=== PATIENT | male | born 2000 | race Caucasian/White ===

== ENCOUNTER 2024-01-07 02:21 | Emergency (ER) | payer OTHER, MEDICAID, SELFPAY ==
[2024-01-07 02:22] VITALS: BP 128/76; PULSE 76; RESP 14; TEMP 36.2; O2SAT 98; BMI 23.2
--- NOTE | 2024-01-07 02:42 | EDS_ITS ---
HPI History of Present Illness Chief Complaint: Allergic Reaction Informant: patient Onset/Context/Timing Onset: Hours Context: Gradual Onset Timing: Continuous Current Severity: Mild Maximum Severity: Mild Narrative Narrative: Healthy 24-year-old male history of eczema. Was at work insert him the rash and itching started in his right forearm also abdomen. They think it may be secondary to colon but they are unsure. He denies any lip or tongue swelling. He denies any wheezing or trouble breathing. No prior history. Prior similar symptoms: No Recent Illness/Hospitalization: No PFSH PFSH Medical History no medical history Home Medications ?Medication ?Instructions ?Recorded ?Last Taken ?Type prednisone 20 mg tablet 40 mg (2 x 20 mg) PO DAILY 7 days 01/07/24 Unknown Rx #14 tabs Allergy/AdvReac Type Severity Reaction Status Date / Time amoxicillin (From Augmentin) Allergy Hives Verified 01/07/24 02:24 clavulanic acid (From Allergy Hives Verified 01/07/24 02:24 Augmentin) Social History Smoking Status: Current every day smoker tobacco type: cigarettes ROS ROS ED ROS Narrative Denies recent illness. Constitutional Constitutional ED: Denies chills or fever(s) Eyes Eyes: Denies blurry vision ENT ENT ED: Denies ear pain Cardiovascular Cardiovascular: Denies chest pain Respiratory/Chest Respiratory/Chest: Denies cough or dyspnea Gastrointestinal Gastrointestinal: Denies abdominal pain Genitourinary Genitourinary ED: Denies dysuria or hematuria Musculoskeletal Musculoskeletal: Denies arthralgias Integumentary Reports rash; Denies abscess or Abrasions Neurologic Neurologic: Denies headache(s) Psychiatric Psychiatric: Denies anxiety Endocrine Endocrinology: Denies cold intolerance Hematologic/Lymphatic Hematologic/Lymphatic: Reports none Allergic/Immunologic Allergic/Immunologic ED: Denies mouth swelling, tongue swelling or urticaria EXAM Physical Exam Narrative Exam Narrative: Well-appearing 23-year-old male. Vital signs stable afebrile. H EENT exam unremarkable. No lip or tongue swelling. No trouble breathing or swallowing. Neck nontender. Lungs clear to auscultation bilaterally. Heart regular rhythm rate about 75 no murmur. Chest wall ribs nontender. Abdomen soft nontender. There is a small faint red rash on his abdomen that blanches consistent allergic reaction. Moving all 4 extremities. He has a rash on his right palmar forearm. Again consistent with allergic reaction. No petechiae or purpura. No sloughing of skin. Normal collection advisor strength bilaterally. Normal dorsi plantarflexion. Back nontender no rash. He is awake and alert. No focal motor deficits. Const Vital Signs: 01/07/24 02:22 Temperature 97.1 F L Temperature Source Temporal Pulse Rate 76 Respiratory Rate 14 Blood Pressure 128/76 H Blood Pressure Mean 93 Pulse Ox 98 Oxygen Delivery Method Room Air Positive well nourished and well developed; Negative for obese, cachectic, contractures or unkempt General Appearance ED: well developed and NAD; Negative for unkempt, cachectic, contractures, cyanotic, diaphoretic or pallor Nutritional Appearance: Negative for cachectic or obese HEENT Reports moist mucous membranes Negative for trauma or tenderness Eyes PERRL and EOMs intact bilaterally General Eye ED: Negative for pale conjunctiva or scleral icterus Neck no lymphadenopathy, supple and no JVD General: Negative for tenderness Lymph Lymphatic: Negative for other Chest Wall inspection of chest normal and palpation of chest normal Chest: Negative for other Resp normal respiratory effort and clear to auscultation bilaterally Effort and Inspection: Negative for retractions Auscultation: Negative for rales, rhonchi, wheezes or diminished lung sounds Cardio regular rate, regular rhythm, S1 normal heart sound, S2 normal heart sound and no murmurs Palpation: Negative for palpable S3 or palpable S4 Rate: Negative for bradycardia or tachycardic Rhythm: Negative for abnormal rhythm GI normal to inspection, nondistended, normoactive bowel sounds, non-tender, non-distended and no masses Inspection: Negative for abdominal distention Palpation: soft; Negative for tender, guarding or rebound tenderness present Back/Spine no CVA tenderness General Back: Negative for CVA tenderness Cervical Spine: Negative for cervical spine tenderness Thoracic Spine / Upper Back: Negative for thoracic spinal tenderness Lumbar Spine / Lower Back: Negative for lumbar spinal tenderness Extremity normal to inspection Extremity Narrative: Rash right forearm. Blanches. General Extremety ED: Negative for edema or tenderness General Extremity: Negative for edema Neuro oriented x3 and CN's II-XII intact bilaterally Sensorium / Orientation: alert; Negative for orientation impaired, lethargic or stuporous Motor Exam: strength 5/5 throughout Psych mental status grossly normal Appearance: Negative for unkempt Attitude: No agitated Mood & Affect: Negative for depressed, anxious or tearful Skin No no rashes or lesions noted, no wounds and skin turgor normal General Skin Exam: elasticity normal; Negative for jaundice or pallor Lesions: No lesion noted Rashes: rashes noted Trauma: Negative for abrasion Wounds: Negative for wounds noted MDM MDM MDM Narrative Medical decision making narrative: 23-year-old male with rash that itches consistent allergic reaction. We given oral prednisone. Discharged home with prednisone prescription and use Benadryl. They are making this Worker's Comp. History & Record Review Discussion w/independent historian: Patient Discharge Plan Triage Chief Complaint: Allergic Reaction ED Provider: Michael Wilson Dx/Rx/DC Orders Clinical Impression: Allergic reaction, Encounter related to worker's compensation claim Instructions: ED General Allergic Reactions Prescriptions: New prednisone 20 mg tablet 40 mg PO DAILY 7 Days Qty: 14 0RF Primary Care Provider: NOT,DEFINED Referrals: Kelechi Heart MD [Med Staff - Communications Billing Analyst] - As Needed NOT,DEFINED [Primary Care Provider] - Activity Restrictions/Additional Instructions: Prednisone daily for 40 mg a day for a week. If the rash completely goes away you can stop it early. You can also use Benadryl for the itching. Follow-up if not improving or return if a lot worse. Most likely is allergic reaction to specifically what I do not know. Print Language: Yi Disposition Disposition: Home, Self Care
[2024-01-07 02:48] VITALS: BP 128/76; PULSE 76; RESP 14; TEMP 36.2; O2SAT 98
[2024-01-07] MEDS: predniSONE 20 MG Tablet 60 MG PO (02:52)
== END 2024-01-07 03:03 | disposition home or self-care (01) ==
LOC: ED 02:53
PROVIDERS: Emergency Provider Emergency Medicine; Visit Provider Emergency Medicine
DX: T78.40XA Allergy, unspecified, initial encounter (principal); F17.210 Nicotine dependence, cigarettes, uncomplicated; Y99.0 Civilian activity done for income or pay
CPT/HCPCS: 99282